=== PATIENT | female | born 1995 | race Caucasian/White ===

== ENCOUNTER → 2020-05-31 08:41 | Outpatient (BNVA) | payer OTHER, SELFPAY | PROVIDERS: PCP Internal Medicine; Referring Provider Internal Medicine; Visit Provider Internal Medicine Gastroenterology | DX: Z76.89 Persons encountering health services in other specified circumstances (principal) ==

== ENCOUNTER 2020-06-14 07:58 | Outpatient (REF) | payer OTHER, SELFPAY ==
--- NOTE | 2020-06-14 08:13 | US_ITS ---
EXAMINATION: US COMPLETE ABDOMEN WITH LIVER ELASTOGRAPHY CLINICAL INFORMATION: Fatty liver COMPARISON: Previous CT scans of the abdomen and pelvis most recent January 2020 TECHNIQUE: Real-time imaging of the abdominal viscera. Noninvasive ultrasound liver fibrosis assessment is performed using Mack ElastPQ point quantification shear wave elastography (pSWE) with a 5 MHz transducer. Multiple elastography samples are obtained. FINDINGS: PANCREAS: Normal. ABDOMINAL AORTA: The proximal, middle, and distal aortic segments are normal in caliber. INFERIOR VENA CAVA: Visualized portions are normal. LIVER: Liver echotexture is increased probably representing fatty infiltration. The liver is normal in contour. There is a 1 x 0.8 x 0.8 cm hypoechoic lesion in the right lobe of the liver. The liver is normal in size. The right lobe measures 16 cm in length. The left lobe measures 11 cm in length. The main portal vein is patent with appropriate hepatopedal flow. Shear wave elastography provides a median stiffness of 1.3 m/s (reference: normal median stiffness is 0.81 - 1.22 m/s). The IQR/median stiffness to assess sampling precision is 0.2 (reference: optimal IQR/median stiffness is under 0.3). GALLBLADDER: Normal. The gallbladder is physiologically distended without evidence of stones, sludge, polyps, wall thickening or pericholecystic fluid. COMMON BILE DUCT: Normal in caliber measuring 0.4 cm in diameter. RIGHT KIDNEY: Normal. No hydronephrosis. No renal calculi or focal parenchymal lesions. The kidney measures 9.5 cm in maximum dimension. LEFT KIDNEY: Normal. No hydronephrosis. No renal calculi or focal parenchymal lesions. The kidney measures 10.8 cm in maximum dimension. SPLEEN: Normal. The spleen measures 11.4 cm in maximum dimension. FREE FLUID: None. US/US abdomen comp w elastography IMPRESSION: 1. Impression: Echogenic liver probably representing fatty infiltration. 1 cm hypoechoic lesion in the right lobe of the liver. This is not appreciated on previous CT scans. This could be better evaluated with liver MRI. 2. Elastography: Metavir score F0 to F1 suggestive of normal to mild increased risk of developing liver fibrosis.
== END 2020-06-14 07:59 | disposition home or self-care (01) ==
LOC: HO.US 07:58
PROVIDERS: PCP Internal Medicine; Visit Provider Internal Medicine Gastroenterology
DX: R10.10 Upper abdominal pain, unspecified (principal); K76.0 Fatty (change of) liver, not elsewhere classified
CPT/HCPCS: 76705; 76981

== ENCOUNTER 2020-07-27 14:08 | Outpatient (REF) | payer OTHER, SELFPAY ==
[2020-07-27 14:53] LABS: MANUAL DIFF FLAG NO
[2020-07-27 14:57] LABS: Basophils Percent Auto 0.4 % (0-2); Eosinophils Absolute Auto 0.1 X10*3/uL (0.0-0.4); Hematocrit 43.7 % (37-47); Hemoglobin 14.5 g/dl (12.0-16.0); Imm Gran Abs Auto 0.02 X10*3/uL (0.00-0.03); Imm Gran Pct Auto 0.3 % (0.0-0.4); Lymphocytes Absolute Auto 3.7 X10*3/uL (1.2-4.9); Lymphocytes Percent Auto 46.9 % (20-40); Mean Corpuscular HGB Conc 33.2 g/dl (31.0-35.0); Mean Corpuscular Hemoglobin 29.8 pg (27.0-33.0); Mean Corpuscular Volume 89.9 fL (80-98); Mean Platelet Volume 10.6 fL (9.4-12.3); Monocytes Absolute Auto 0.5 X10*3/uL (0.1-1.2); Monocytes Percent Auto 6.4 % (2-11); Neutrophils Absolute Auto 3.6 X10*3/uL (2.0-8.3); Platelet Count 273 X10*3/uL (160-400); Red Blood Count 4.86 X10*6/uL (4.20-5.50)
[2020-07-27 15:23] LABS: Alanine Aminotransferase 22 U/L (0-31); Albumin Level 4.2 g/dL (3.5-5.0); Alkaline Phosphatase 101 U/L (39-117); Anion Gap 15 (12-20); Aspartate Amino Transferase 20 U/L (5-31); Bilirubin Total 0.3 mg/dL (0.0-1.0); Blood Urea Nitrogen 9 mg/dL (9-16); C Reactive Protein 0.29 mg/dL (< or = 0.50); Carbon Dioxide 24 mmol/L (22-29); Chloride 104 mmol/L (96-108); Cholesterol 182 mg/dL; Estimated Glomerular Filt Rate > 60; Gamma Glutamyl Transpeptidase 15 U/L (7-33); Glucose Fasting 93 mg/dL (60-99); HDL Cholesterol 64 mg/dL; LDL Cholesterol Calculated 85 mg/dl; Potassium 3.6 mmol/l (3.3-5.1); Sodium 139 mmol/L (135-145); Total Protein 7.2 g/dL (6.5-8.0); Triglycerides 168 mg/dL
[2020-07-27 15:50] LABS: TSH reflex Free T4 1.83 mIU/mL (0.32-4.0); Vitamin D 25-OH Total 21.8 ng/mL (>30)
[2020-07-27 16:29] LABS: Ferritin 26 ng/mL (10-122)
[2020-07-28 04:23] LABS: HBS Num1 0.72 mIU/mL (0-7.99); HBc Num1 0.07 S/CO (0.00-0.79); Hepatitis B Core Antibody Nonreactive (Nonreactive); ~HepC Num1 0.08 S/CO (0.00-0.79); ~Hepatitis B Surface Antibody NONREACTIVE (Nonreactive); ~Hepatitis C Antibody Nonreactive (Nonreactive)
[2020-07-28 04:29] LABS: HBsAGNum1 0.21 S/CO (0.00-0.99); Hepatitis B Surface Antigen Negative (Negative)
[2020-07-28 13:32] LABS: Alpha 1 Anti-trypsin 171 mg/dL (83-199); Ceruloplasmin 47 mg/dL (18-53)
[2020-08-02 13:12] LABS: Transglutaminase IgA 1 U/mL
== END 2020-07-27 14:09 | disposition home or self-care (01) ==
LOC: HO.LAB 14:08
PROVIDERS: Visit Provider Internal Medicine Gastroenterology
DX: K76.0 Fatty (change of) liver, not elsewhere classified (principal)
CPT/HCPCS: 36415; 80053; 80061; 82103; 82306; 82390; 82728; 82977; 83516; 84443; 85025; 86140; 86704; 86706; 86803; 87340

== ENCOUNTER → 2020-07-28 16:03 | Outpatient (BNVA) | payer OTHER, SELFPAY | PROVIDERS: Visit Provider Internal Medicine Gastroenterology | DX: Z76.89 Persons encountering health services in other specified circumstances (principal) ==

== ENCOUNTER → 2021-01-17 11:27 | Outpatient (BNVA) | payer OTHER, SELFPAY | PROVIDERS: PCP Internal Medicine; Referring Provider Internal Medicine; Visit Provider Nurse Practitioner Family ==

== ENCOUNTER → 2021-04-05 08:17 | Outpatient (BNVA) | payer OTHER, SELFPAY | PROVIDERS: Referring Provider Internal Medicine; Visit Provider Nurse Practitioner Family ==

== ENCOUNTER → 2021-04-28 16:02 | Outpatient (BNVA) | payer OTHER, SELFPAY | PROVIDERS: PCP Internal Medicine; Referring Provider Internal Medicine; Visit Provider Surgery | DX: K62.5 Hemorrhage of anus and rectum (principal); K64.4 Residual hemorrhoidal skin tags; K76.0 Fatty (change of) liver, not elsewhere classified; F41.8 Other specified anxiety disorders; Z91.040 Latex allergy status; Z91.010 Allergy to peanuts; Z91.018 Allergy to other foods; Z79.899 Other long term (current) drug therapy | CPT/HCPCS: 46600 ==

== ENCOUNTER → 2021-05-06 08:52 | Outpatient (BNVA) | payer OTHER, SELFPAY | PROVIDERS: PCP Internal Medicine; Visit Provider Nurse Practitioner Family ==

== ENCOUNTER 2021-06-10 07:44 | Outpatient (REF) | payer OTHER, SELFPAY ==
--- NOTE | ~2021-06-10 | US_ITS ---
EXAMINATION: US ABDOMEN COMPLETE CLINICAL INFORMATION: Fatty change of liver, not elsewhere classified. COMPARISON: Ultrasound abdomen complete 06/14/2020. CT abdomen and pelvis 01/24/2020. Renal ultrasound 10/23/2018. TECHNIQUE: Real-time imaging of the abdominal viscera. FINDINGS: PANCREAS: Unremarkable. ABDOMINAL AORTA: The proximal, mid, and distal segments are normal in caliber. INFERIOR VENA CAVA: Visualized portions are normal. LIVER: The liver is normal in size. The liver contour is normal. The liver shows diffusely increased echogenicity consistent with hepatic steatosis. Focal fatty sparing is evident in the gallbladder fossa. No focal hepatic lesion. The small focal hypodense lesion seen previously in the right lobe is not visualized. There is no intrahepatic biliary duct dilatation seen. GALLBLADDER: Normal. The gallbladder is physiologically distended without evidence of stones, sludge, polyps, wall thickening or pericholecystic fluid. COMMON BILE DUCT: Normal in caliber measuring 0.4 cm in diameter. RIGHT KIDNEY: Normal. No hydronephrosis. No renal calculi or focal parenchymal lesions. The kidney measures 9.9 cm in maximum dimension. LEFT KIDNEY: Normal. No hydronephrosis. No renal calculi or focal parenchymal lesions. The kidney measures 9.9 cm in maximum dimension. SPLEEN: Normal. The spleen measures 11.3 cm in maximum dimension. FREE FLUID: None. US/US abdomen complete IMPRESSION: 1. Stable appearance of the liver which is mildly heterogeneous with increased echogenicity, nonspecific but consistent with hepatic steatosis. Focal fatty sparing is evident in the gallbladder fossa. 2. Small hypoechoic lesion seen previously in the right lobe is not visualized. 3. Otherwise unremarkable.
== END 2021-06-10 07:45 | disposition home or self-care (01) ==
LOC: HO.US 07:44
PROVIDERS: PCP Internal Medicine; Visit Provider Nurse Practitioner Family
DX: K76.0 Fatty (change of) liver, not elsewhere classified (principal)
CPT/HCPCS: 76700

== ENCOUNTER → 2021-10-31 08:31 | Outpatient (BNVA) | payer OTHER, SELFPAY | PROVIDERS: PCP Internal Medicine; Referring Provider Internal Medicine; Visit Provider Nurse Practitioner Family | DX: Z13.89 Encounter for screening for other disorder (principal) ==

== ENCOUNTER 2021-11-03 14:18 | Outpatient (REF) | payer OTHER, SELFPAY ==
[2021-11-03 14:59] LABS: Hematocrit 39.2 % (37.0-47.0); Hemoglobin 13.4 g/dl (12.0-16.0); Mean Corpuscular HGB Conc 34.2 g/dl (31.0-35.0); Mean Corpuscular Hemoglobin 30.3 pg (27.0-33.0); Mean Corpuscular Volume 88.7 fL (80.0-98.0); Mean Platelet Volume 10.8 fL (9.4-12.3); Platelet Count 255 X10*3/uL (160-400); Red Blood Count 4.42 X10*6/uL (4.20-5.50); Red Cell Distribution Width 11.9 % (11.0-16.0); White Blood Count 8.1 X10*3/uL (4.8-10.8)
[2021-11-03 15:18] LABS: Alanine Aminotransferase 20 U/L (0-31); Albumin Level 3.9 g/dL (3.5-5.0); Alkaline Phosphatase 98 U/L (39-117); Aspartate Amino Transferase 22 U/L (5-31); Bilirubin Direct < 0.2 mg/dL (0.0-0.5); Bilirubin Total 0.4 mg/dL (0.0-1.0); C Reactive Protein 0.73 mg/dL (< or = 0.50); Lipase 25 U/L (8-78); Total Protein 6.9 g/dL (6.5-8.0)
[2021-11-11 12:26] LABS: Transglutaminase Ab IgG <1.0 U/mL; Transglutaminase IgA <1.0 U/mL
== END 2021-11-03 14:19 | disposition home or self-care (01) ==
LOC: HO.LAB 14:18
PROVIDERS: PCP Internal Medicine; Visit Provider Nurse Practitioner Family
DX: R10.11 Right upper quadrant pain (principal); Z83.79 Family history of other diseases of the digestive system
CPT/HCPCS: 36415; 80076; 83690; 85027; 86140; 86364

== ENCOUNTER 2023-10-24 15:25 | Outpatient (AMB) | payer OTHER, SELFPAY ==
--- NOTE | 2023-10-24 15:40 | MHC.OFFVIS ---
Intake Vital Signs 10/24/23 16:05 Height 5 ft 3 in Intake Visit Reasons: rectal bleeding and hemorrhoids Intake Note: This patient presents for an assessment for rectal bleeding and hemorrhoids. Pt c/o; ? external skin tag, reports rectal bleeding only if passes hard stool, ? skin tag vs hemorrhoid, reports never had a colonoscopy, reports weight loss. 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 She also feels a fleshy mass outside her anus. She wanted this checked. She is known to me for bleeding hemorrhoids in the past. She had seen me in 2020 for this. She occasionally has some bleeding from her hemorrhoids. I had seen internal external hemorrhoidal columns before She states that she does have a history of chronic constipation on and off. She still sees some blood on wiping once in a while whenever she has hard stools. She denies any significant pain. [facility] Medical History Internal and external bleeding hemorrhoids Bleeding hemorrhoids Anxiety and depression Hepatic steatosis IBS (irritable colon syndrome) Surgical History Hx of hand surgery No significant past surgical history Family History Father History of cancer Mother Family history of high blood pressure History of COPD Lung cancer Social History Alcohol intake: current Alcohol intake frequency: a few times a week Alcohol type: hard liquor Substance Use Type: Marijuana Review of Systems Const Denies chills and Denies fever(s) Card Denies chest pain, Denies dyspnea and Denies dyspnea on exertion Resp Denies cough, Denies dyspnea and Denies dyspnea on exertion GI Reports hematochezia, Denies change in bowel habits and Reports constipation Denies hematuria Musc Denies back pain and Denies limited range of motion Neuro Denies focal weakness and Denies convulsions Psych Denies depression and Denies mood swings Physical Exam Const General: comfortable and no acute distress Orientation/consciousness: patient oriented x3 Neck Neck: Yes no lymphadenopathy Resp Auscultation: clear to auscultation bilaterally Cardio Rhythm: regular rhythm GI Palpation (GI): Soft to palpation, nontender and no guarding Neuro General: patient oriented x3 Office Procedures Anoscopy She was in elsa-knife position. The anoscope was gently inserted. A full examination of the anal canal was done. He did have small hemorrhoidal columns, internal, and some external on both the left and right side There were no lesions seen with a sharp fissure or ulceration. There was no induration on digital exam. There was no bleeding She did have this small sclerosed external hemorrhoid on the right anterior area and this is likely what she is feeling as a ?fleshy mass?. [id number] Assessment & Plan Assessment & Plan (1) Internal and external bleeding hemorrhoids: Code(s): K64.4 - Residual hemorrhoidal skin tags; K64.8 - Other hemorrhoids Plan: She does describe some occasional bleeding on wiping whenever she is constipated. She was more concerned about the ?fleshy mass? just outside her anus. This is a sclerosed hemorrhoid. I told her that this appears benign. This is small in size. I told her that if this is not bothering her were not causing any issues, she can continue to monitor this. She is welcome to come back to the office if she has concerns down the line. She is comfortable with the plan. She does have a history of constipation. I told her that would be good for her to try some Metamucil supplements. Control of her constipation can help with her hemorrhoid issues as well. Coding Level of Care Code Est Pt Level 3 (18874) Diagnoses Internal and external bleeding hemorrhoids K64.4; K64.8 CPT Codes Details - CPT: 50379-[id number] ([id number])
== END 2023-10-24 16:28 | disposition home or self-care (01) ==
PROVIDERS: PCP Internal Medicine; Visit Provider Surgery
DX: K64.8 Other hemorrhoids (principal)
CPT/HCPCS: 46600; 99213

== ENCOUNTER → 2023-10-24 15:25 | Outpatient (BNVA) | payer OTHER, SELFPAY | PROVIDERS: PCP Internal Medicine; Visit Provider Surgery | DX: K64.4 Residual hemorrhoidal skin tags (principal); K64.8 Other hemorrhoids | CPT/HCPCS: 46600 ==

== ENCOUNTER 2024-08-20 09:01 | Outpatient (AMB) | payer OTHER, SELFPAY ==
[2024-08-20 09:14] VITALS: BP 98/56; PULSE 66; O2SAT 98; BMI 24.8
--- NOTE | 2024-08-20 09:14 | A.OFFVIS_ITS ---
Vital Signs 08/20/24 09:14 Height 5 ft 3 in Weight 140 lb 3.424 oz BMI 24.8 BP 98/56 L Blood Pressure Location Rt brachial Position Sitting Pulse 66 Pulse Source Pulse Oximeter Pulse Oximetry (%) 98 Oxygen Delivery Method Room Air Intake Visit Reasons: Acute Constipation, in ED on 08/15/24 Intake Note: ESTABLISHED PATIENT for FUV re-establish kelsi was 10/31/2021. Mgmt of hepatic stenosis, constipation w/ hemorrhoids. Chief Complaint; Constipation, with associated hx of hemorrhoids which were evaluated by [facility]. Pt also reports recent hx of fecal inconsistencies and bowel habit changes. Pt denies any additional GI concerns. Organizational Development Director Required: No Accompanied by: Self / Same As Patient Allergies peanut Allergy (Severe, Verified 08/20/24 09:15) Anaphylaxis latex [LATEX] Allergy (Intermediate, Verified 10/24/23 16:04) ITCHING RAW FRUITS AND VEGETABLES Allergy (Unknown, Uncoded 10/24/23 16:04) itchy mouth, throat feels tight, unable to swallow HPI HPI Acute Constipation, in ED on 08/15/24: Details: LAST VISIT: Hepatic steatosis History of hepatic steatosis. Discussed with patient avoiding alcohol. Patient will need to go for liver profile testing. Ordered last visit, however person forgot to get it done. Because of her postprandial abdominal discomfort I will order lipase as well. Patient had elevated lipase back in January of 2020: 104. IBS (irritable colon syndrome) Postprandial abdominal bloating, pain. Most likely related to the food that she eats. Discussed with patient avoiding dietary triggers FODMAP diet discussed with her again. Patient has previously seen Dr. Townsend and she was given dicyclomine, however that was not working very well for her. Given patient's inability to empty her bowels completely dicyclomine probably has not been a great choice. Discussed with patient that the best for her would be to avoid the food that can cause her no symptoms. Also we might need to try to start her on Creon to see if that will help. Previously her HIDA scan was done and it was normal. On her last ultrasound the gallbladder is distended with no evidence of slough,wall thickness or stones. Upper abdominal pain Epigastric abdominal pain. We will test her for H pylori. Patient will be sent to go for pancreatic elastase to rule out pancreatic insufficiency we can have her do stool for H pylori as well. We will treat her empirically if positive. Patient is taking famotidine which she reports that is helpful. I am not going to start her on any PPIs at this time. We will try to see if the Creon will help with her symptoms. I will see her in 3 months to re-evaluate. Patient will call me sooner if she will have any worsening symptoms or any other GI concerning symptoms. ? Thank you for allowing me to participate in her care Plan Orders Orders Pancreatic Elastase-1 10/31/21 R10.9 Lipase 11/03/21 R10.9 H pylori Ag Stool 10/31/21 K21.9 Medications New hyizgo-ykkizmpz-htanpmq 12,000-38,000 -60,000 unit (Creon) administer with meals and/or snacks 1 cap PO QID 120 caps 2RF R10.9= TODAY VISIT Patient is here today for requested visit. Patient reports that she has been doing well since last visit until about few months ago. Patient is eating well change her diet drinking lots of water. Patient started feeling very constipated. Severe abdominal pain in the pelvic area radiating to right lower quadrant, patient was seen in the ED at [facility] All her blood work was negative, no leukocytosis. CT scan showed moderate stool throughout the colon. Patient reports that she started taking women's vitamins with iron and back could be the reason, however patient states that she stopped taking it and continues to be constipated. Patient reports that she never had trouble having bowel movement in the past. Patient reports that she was given GoLYTELY and states that that help to clean her else. Occasional blood in his stool. Denies melena, unintentional weight loss or ribbon like stools. [facility] Medical History Internal and external bleeding hemorrhoids Bleeding hemorrhoids Anxiety and depression Hepatic steatosis IBS (irritable colon syndrome) Surgical History Hx of hand surgery No significant past surgical history Family History Father History of cancer Mother Family history of high blood pressure History of COPD Lung cancer Social History Alcohol intake: current Alcohol intake frequency: a few times a week Alcohol type: hard liquor Substance Use Type: Marijuana Review of Systems Const Denies weight gain and Denies weight loss ENT Reports no additional complaints, Denies dysphagia and Denies odynophagia Card Reports no additional complaints Resp Reports no additional complaints GI Reports abdominal pain, Denies belching, Denies melena, Reports bloating, Denies change in bowel habits, Reports constipation, Denies dysphagia, Denies excessive flatus, Denies dyspepsia, Denies heartburn, Denies diarrhea, Denies loose stools, Denies nausea, Denies odynophagia and Denies vomiting Reports no additional complaints Musc Reports no additional complaints Neuro Reports no additional complaints Psych Reports no additional complaints Endo Reports no additional complaints Physical Exam Vital Signs: Last Vital Signs Pulse 66 08/20/24 09:14 BP 98/56 L 08/20/24 09:14 Pulse Ox 98 08/20/24 09:14 Oxygen Delivery Method Room Air 08/20/24 09:14 BMI result Body Mass Index 24.8 Const General: healthy appearing, no acute distress and well developed Nutritional Appearance: well nourished Orientation/consciousness: patient oriented x3 Resp Effort & Inspection: normal respiratory effort, able to speak in complete sentences, no tracheal deviation and symmetric chest movement Auscultation: clear to auscultation bilaterally Cardio Rate: regular rate GI Inspection: Yes normal to inspection and No distended Palpation (GI): Soft to palpation, not firm, nontender and No hepatosplenomegaly present Auscultation: normal bowel sounds General: Yes no CVA tenderness Back/Spine/Pelvis Back: no CVA tenderness Skin General skin exam: elasticity normal, turgor normal and dry skin Neuro General: patient oriented x3 Psych Appearance: grossly normal Mental Status: mental status grossly normal Assessment & Plan Assessment & Plan (1) Internal and external bleeding hemorrhoids: Code(s): K64.4 - Residual hemorrhoidal skin tags; K64.8 - Other hemorrhoids Category: Medical (2) IBS (irritable colon syndrome): Code(s): K58.9 - Irritable bowel syndrome, unspecified Category: Medical Qualifiers: Irritable bowel syndrome type: unspecified Qualified Code(s): K58.9 - Irritable bowel syndrome without diarrhea (3) Constipation: Code(s): K59.00 - Constipation, unspecified Qualifiers: Constipation type: slow transit constipation Qualified Code(s): K59.01 - Slow transit constipation Plan Patient will try Benefiber with pre and probiotic, stool softeners. Patient will stop taking iron supplement and will try to eat food high in iron. Patient is not anemic. Will be set up to go for colonoscopy. What to expect before during and after procedure discussed with patient. Stressed the importance of good bowel prep and clear liquid diet day before procedure. Patient would like to try GoLYTELY as this worked for her in the past. I will see patient after the procedure. Patient will call our office if she will have any GI concerning symptoms. She is agreeable to this plan and verbalizes understanding of instructions she was given the opportunity to ask questions and all questions answered. Thank you for allowing me to participate in care Medications: New peg 3350-electrolytes 227.1-21.5-6.36 gram 240 mL PO Q10M 1 ea 0RF bisacodyl (Dulcolax (bisacodyl)) take 4 tabs at noon the day before your colonoscopy 20 mg (4 x 5 mg) PO ONCE 1 day 4 tabs 0RF Z12.11 - Encounter for screening for malignant neoplasm of colon Coding Level of Care Code Est Pt Level 3 (62828) Diagnoses Internal and external bleeding hemorrhoids K64.4; K64.8 Irritable bowel syndrome, unspecified type K58.9 Irritable bowel syndrome type: unspecified Slow transit constipation K59.01 Constipation type: slow transit constipation Time Spent (min) 30 Comment 20 minutes spent with patient and additional 10 minutes spent reviewing her records
--- OUTSIDE RECORDS SUMMARY | 2024-08-20 10:16 | XMS_ITS | Clinical Summary ---
Author Organization [facility] Address [address] [place] [phone] Phone Care Team Providers Care Coat Examiner Name Role Phone Moustapha Ocasio MD Primary Care Provider [phone] Allergies No known active allergies Medications Medication Sig Dispensed Refills Start Date End Date Status albuterol HFA (PROAIR HFA ; PROVENTIL HFA ; VENTOLIN HFA) 90 mcg/actuation inhaler Inhale 2 puffs by mouth every 4 (four) hours if needed for shortness of breath. 02/01/2019 Active clonazePAM (KlonoPIN) 0.5 mg tablet Take 1 tablet (0.5 mg total) by mouth 2 (two) times a day if needed. for anxiety Max Daily Amount: 1 mg Active norgestimate-ethiny l estradioL (ORTHO-CYCLEN) 0.25-35 mg-mcg per tablet Take 1 tablet by mouth 1 (one) time each day. Active fluticasone propionate (FLONASE) 50 mcg/actuation nasal spray Administer 1 spray into each nostril 1 (one) time each day. Active buPROPion XL (WELLBUTRIN XL) 150 mg 24 hr tablet Take 1 tablet (150 mg total) by mouth 1 (one) time each day. 06/30/2024 Active polyethylene glycol (GoLYTELY) 236-22.74-6.74 -5.86 gram solution Take 4,000 mL by mouth 1 (one) time for 1 dose. 4000 mL 08/15/2024 08/15/2024 Active Problems No known active problems Encounters Date Type Department Care Team Description 08/15/2024 9:13 AM EST - 08/15/2024 12:[address] [facility] [address] [place] [address] Rick Rutherford MD Constipation, unspecified constipation type (Primary Dx); Generalized abdominal pain Discharge Disposition: Home or Self Care from Last 3 Months Surgical History Surgery Date Site/Laterality Comments HAND SURGERY PROCEDURE:HAND SURGERY Medical History Medical History Date Comments Frequent headaches DX:Frequent h eadaches Ovarian cyst Anxiety Family History Medical History Relation Name Comments Lung cancer Father Lung cancer Father's Brother Acute myelogenous leukemia Maternal Grandfather Lung cancer Maternal Grandmother Lung cancer Mother Throat cancer Mother's Sister Lung cancer Paternal Grandfather Lung cancer Paternal Grandmother Relation Name Status Comments Father Father's Brother Maternal Grandfather Maternal Grandmother Mother Mother's Sister Alive Paternal Grandfather Paternal Grandmother Social History Tobacco Use Types Packs/Day Years Used Date Smoking Tobacco: Never Smokeless Tobacco: Never Alcohol Use Standard Drinks/Week Comments Yes 0 (1 standard drink = 0.6 oz pur e alcohol) Sex and Gender Information Value Date Recorded Sex Assigned at Not on file Gender Identity Not on file Sexual Orientation Not on file Job Start Date Occupation Industry Not on file Not on file Not on file Obstetrics History Last Filed Vital Signs Vital Sign Reading Time Taken Comments Blood Pressure 119/77 08/15/2024 9:23 AM EST Pulse 93 08/15/2024 9:23 AM EST Temperature 36.8 ??C (98.3 ??F) 08/15/2024 9:26 AM ES T Respiratory Rate 16 08/15/2024 9:23 AM EST Oxygen Saturation 98% 08/15/2024 9:23 AM EST Inhaled Oxygen Concentration - - Weight 61.2 kg (135 lb) 08/15/2024 9:26 AM EST Height 160 cm (5' 3 ) 08/15/2024 9:26 AM EST Body Mass Index 23.91 08/15/2024 9:26 AM EST Plan of Treatment Health Maintenance Due Date Last Done Comments DTaP,Tdap,and Td Vaccines (1 - Tdap) 2012 Hepatitis B Vaccines (1 of 3 - 19+ 3-dose series) 2012 Cervical Cancer Screening: P ap Smear 2014 Depression Screening 06/25/2022 HIV Screening 06/25/2022 Hepatitis C Screening 06/25/2022 Social Influencers of Health Screening 06/25/2022 COVID-19 Vaccine (2023-2 5 season) 2024 Influenza Vaccine (#1) 2024 HIB Vaccines Aged Out No longer eligi ble based on patient's age to complete this topic HPV Vaccines Aged Out No longer eligi ble based on patient's age to complete this topic Hepatitis A Vaccines Aged Out No long er eligible based on patient's age to complete this topic IPV Vaccines Aged Out No longer eligi ble based on patient's age to complete this topic MMR Vaccines Aged Out No longer eligi ble based on patient's age to complete this topic Meningococcal ACWY Vaccine Aged Out N o longer eligible based on patient's age to complete this topic Pneumococcal Vaccine: Pediat rics (0 to 5 Years) and At-Risk Patients (6 to 64 Years) Aged Out No longer eligible b ased on patient's age to complete this topic RSV Immunization Patients Un wade 20 months Aged Out No longer eligible b ased on patient's age to complete this topic Varicella Vaccines Aged Out No longer eligible based on patient's age to complete this topic Procedures Procedure Name Priority Date/Time Associated Diagnosis Comments CT ABDOMEN PELVIS W CONTRAST STAT 08/15/2024 11:39 AM EST CBC WITH AUTO DIFFERENTIAL STAT 08/15/2024 10:22 AM EST LIPASE STAT 08/15/2024 10:22 AM EST COMPREHENSIVE METABOLIC PANEL STAT 08/15/2024 10:22 AM EST CBC AND DIFFERENTIAL STAT 08/15/2024 10:22 AM EST POC , URINE DIAGNOSTIC STAT 08/15/2024 9:51 AM EST URINALYSIS WITH REFLEX MICROSCOPIC STAT 08/15/2024 9:45 AM EST URINALYSIS WITH REFLEX MICROSCOPIC STAT 08/15/2024 9:45 AM EST from Last 3 Months Results * CT Abdomen Pelvis w Contrast (08/15/2024 11:39 AM EST) Anatomical Region Laterality Modality Body Computed Tomogra phy 08/15/2024 12:0 3 PM EST Impressions 08/15/2024 12:06 PM EST No acute findings in the abdomen/pelvis. ??Normal appendix. -------- FINAL REPORT -------- Dictated By: DANIEL ALVARADO Dictated Date: 08/15/2024 12:03 ET Assigned Physician: DANIEL ALVARADO Reviewed and Electronically Signed By: DANIEL ALVARADO Signed Date: 08/15/2024 12:06 ET Workstation ID: [id number] Transcribed By: Self Edit Transcribed Date: 08/15/2024 12:03 ET Narrative 08/15/2024 12:06 PM EST PROCEDURE: CT ABDOMEN/PELVIS INDICATION: Pain TECHNIQUE: CT of the abdomen and pelvis following the intravenous administration of 90cc Isovue 370. Multiplanar reformats. The examination was performed utilizing dose reduction techniques. Total DLP 564 COMPARISON: ??No priors available. FINDINGS: ?? LOWER THORAX: Lung bases are clear. HEPATOBILIARY: Hepatic steatosis. ??Focal fat along the falciform ligament. ??No suspicious liver lesions. ??Gallbladder and biliary tree are normal SPLEEN: No splenomegaly. PANCREAS: No focal mass or ductal dilatation. ADRENALS: No nodules. KIDNEYS/URETERS: No hydronephrosis, stones, or solid mass. PELVIC ORGANS/BLADDER: Uterus, adnexal structures, and bladder are normal. PERITONEUM / RETROPERITONEUM: No ascites or free air. No retroperitoneal lymphadenopathy. VESSELS: Portal vein is patent. ??Abdominal aorta is normal in size. GI TRACT: No bowel obstruction or wall thickening. ??Normal appendix. ??Moderate stool throughout the colon. BONES AND SOFT TISSUES: Bones and soft tissues are normal. Procedure Note Daniel Alvarado MD - 08/15/2024 PROCEDURE: CT ABDOMEN/PELVIS INDICATION: Pain TECHNIQUE: CT of the abdomen and pelvis following the intravenousadministration of 90cc Isovue 370. Multiplanar reformats. The examinationwas performed utilizing dose reduction techniques. Total DLP 564 COMPARISON: No priors available. FINDINGS: LOWER THORAX: Lung bases are clear. HEPATOBILIARY: Hepatic steatosis. Focal fat along the falciform ligament.No suspicious liver lesions. Gallbladder and biliary tree are normal SPLEEN: No splenomegaly. PANCREAS: No focal mass or ductal dilatation. ADRENALS: No nodules. KIDNEYS/URETERS: No hydronephrosis, stones, or solid mass. PELVIC ORGANS/BLADDER: Uterus, adnexal structures, and bladder arenormal. PERITONEUM / RETROPERITONEUM: No ascites or free air. No retroperitoneallymphadenopathy. VESSELS: Portal vein is patent. Abdominal aorta is normal in size. GI TRACT: No bowel obstruction or wall thickening. Normal appendix.Moderate stool throughout the colon. BONES AND SOFT TISSUES: Bones and soft tissues are normal. IMPRESSION: No acute findings in the abdomen/pelvis. Normal appendix. -------- FINAL REPORT -------- Dictated By: DANIEL ALVARADO Dictated Date: 08/15/2024 12:03 ET Assigned Physician: DANIEL ALVARADO Reviewed and Electronically Signed By: DANIEL ALVARADO Signed Date: 08/15/2024 12:06 ET Workstation ID: [id number] Transcribed By: Self Edit Transcribed Date: 08/15/2024 12:03 ET Marcelo ASHLEY IM CT PROCEDURES * (ABNORMAL) CBC auto differential (08/15/2024 10:22 AM EST) WBC 6.7 4.8 - 10.8 K/mcL LAB HEMETOLOGY METHOD 08/15/2024 10:46 AM [facility] RBC 4.50 3.80 - 4.80 M/mcL LAB HEMETOLOGY METHOD 08/15/2024 10:46 AM [facility] Hemoglobin 13.7 11.5 - 16.0 g/dL LAB HEMETOLOGY METHOD 08/15/2024 10:46 AM [facility] Hematocrit 41.1 35.0 - 47.0 % LAB HEMETOLOGY METHOD 08/15/2024 10:46 AM [facility] MCV 92.4 79.0 - 98.0 FL LAB HEMETOLOGY METHOD 08/15/2024 10:46 AM [facility] MCH 30.8 27.0 - 32.0 pcg LAB HEMETOLOGY METHOD 08/15/2024 10:46 AM [facility] MCHC 33.3 32.0 - 37.0 g/dL LAB HEMETOLOGY METHOD 08/15/2024 10:46 AM [facility] RDW 12.0 11.0 - 15.0 % LAB HEMETOLOGY METHOD 08/15/2024 10:46 AM [facility] Platelets 283 130 - 400 K/mcL LAB HEMETOLOGY METHOD 08/15/2024 10:46 AM [facility] MPV 11.1(H) 7.0 - 11.0 FL LAB HEMETOLOGY METHOD 08/15/2024 10:46 AM [facility] NRBC 0.0 <1.0 % LAB HEMETOLOGY METHOD 08/15/2024 10:46 AM [facility] NRBC Absolute 0.00 <0.10 K/mcL LAB HEMETOLOGY METHOD 08/15/2024 10:46 AM [facility] Neutrophils Relative 56.3 % LAB HEMETOLOGY METHOD 08/15/2024 10:46 AM [facility] Lymphocytes Relative 34.8 % LAB HEMETOLOGY METHOD 08/15/2024 10:46 AM [facility] Monocytes Relative 6.4 % LAB HEMETOLOGY METHOD 08/15/2024 10:46 AM [facility] Eosinophils Relative 1.5 % LAB HEMETOLOGY METHOD 08/15/2024 10:46 AM [facility] Basophils Relative 0.7 % LAB HEMETOLOGY METHOD 08/15/2024 10:46 AM [facility] Immature Granulocytes Relative 0.3 % LAB HEMETOLOGY METHOD 08/15/2024 10:46 AM EST [facility] Neutrophils Absolute 3.77 1.50 - 7.00 K/[facility] LAB HEMETOLOGY METHOD 08/15/2024 10:46 AM EST [facility] Lymphocytes Absolute 2.33 1.00 - 5.00 K/mcL LAB HEMETOLOGY METHOD 08/15/2024 10:46 AM EST [facility] Monocytes Absolute 0.43 0.20 - 1.00 K/[facility] LAB HEMETOLOGY METHOD 08/15/2024 10:46 AM EST [facility] Eosinophils Absolute 0.10 0.00 - 0.50 K/[facility] LAB HEMETOLOGY METHOD 08/15/2024 10:46 AM EST [facility] Basophils Absolute 0.05 0.00 - 0.20 K/mcL LAB HEMETOLOGY METHOD 08/15/2024 10:46 AM EST [facility] Immature Granulocytes Absolute 0.02 0.00 - 0.03 K/[facility] LAB HEMETOLOGY METHOD 08/15/2024 10:46 AM EST [facility] Blood Venous blood specimen / Unknown Venipuncture / Unknown 08/15/2024 10:22 AM EST 08/15/2024 10:36 AM EST Marcelo [facility] LAB BLOOD ORDERAB LES [facility]) [facility] [address] [place] [address], * Lipase (08/15/2024 10:22 AM EST) Lipase 48 13 - 75 unit/L LAB CHEMISTRY METHOD 08/15/2024 11:08 AM EST [facility] Blood Venous blood specimen / Unknown Venipuncture / Unknown 08/15/2024 10:22 AM EST 08/15/2024 10:36 AM EST Marcelo ASHLEY LAB BLOOD ORDERAB LES [facility] [address] [place] [address], * (ABNORMAL) Comprehensive metabolic panel (08/15/2024 10:22 AM EST) Sodium 137 133 - 145 mmol/L LAB CHEMISTRY METHOD 08/15/2024 11:09 AM [facility] Potassium 4.1 3.5 - 5.5 mmol/L LAB CHEMISTRY METHOD 08/15/2024 11:09 AM [facility] Chloride 109 96 - 110 mmol/L LAB CHEMISTRY METHOD 08/15/2024 11:09 AM [facility] CO2 26 21 - 32 mmol/L LAB CHEMISTRY METHOD 08/15/2024 11:09 AM [facility] Anion Gap 2(L) 3 - 11 LAB CHEMISTRY METHOD 08/15/2024 11:09 AM [facility] Glucose 83 70 - 100 mg/dL LAB CHEMISTRY METHOD 08/15/2024 11:09 AM [facility] BUN 12 5 - 25 mg/dL LAB CHEMISTRY METHOD 08/15/2024 11:09 AM [facility] Creatinine 0.86 0.50 - 1.10 mg/dL LAB CHEMISTRY METHOD 08/15/2024 11:09 AM [facility] eGFR 93 >=60 mL/min/1. 73m2 LAB CHEMISTRY METHOD 08/15/2024 11:09 AM [facility] Comment:Calculation based on the??Chronic Kidney Disease Epidemiology Collaboration (CKD-EPI) equation refit??without adjustment for race. BUN/Creatinine Ratio 14.0 LAB CHEMISTRY METHOD 08/15/2024 11:09 AM [facility] Calcium 9.3 8.5 - 10.5 mg/dL LAB CHEMISTRY METHOD 08/15/2024 11:09 AM [facility] AST (SGOT) 24 10 - 42 unit/L LAB CHEMISTRY METHOD 08/15/2024 11:09 AM [facility] ALT (SGPT) 25 10 - 60 unit/L LAB CHEMISTRY METHOD 08/15/2024 11:09 AM [facility] Alkaline Phosphatase 115 42 - 121 unit/L LAB CHEMISTRY METHOD 08/15/2024 11:09 AM [facility] Total Protein 7.1 6.0 - 8.0 g/dL LAB CHEMISTRY METHOD 08/15/2024 11:09 AM [facility] Albumin 3.6 3.2 - 5.0 g/dL LAB CHEMISTRY METHOD 08/15/2024 11:09 AM [facility] Total Bilirubin 0.2 0.0 - 1.4 mg/dL LAB CHEMISTRY METHOD 08/15/2024 11:09 AM [facility] Blood Venous blood specimen / Unknown Venipuncture / Unknown 08/15/2024 10:22 AM EST 08/15/2024 10:36 AM EST Marcelo ASHLEY LAB BLOOD ORDERAB LES [facility] [address] [place] [address], * POC , urine manually resulted (08/15/2024 9:51 AM EST) Pathologist [facility] HCG, Ur POC Negative Negative POC hCG Int QC Pass? Yes Yes Urine Urine specimen obtained by clean catch procedure / Unknown 08/15/2024 9:51 AM EST Marcelo ASHLEY POINT OF CARE TORREY T ENTER/EDIT ORDERABLES * Urinalysis with reflex microscopic (08/15/2024 9:45 AM EST) Pathologist [facility] Specific [place] Urine 1.014 1.003 - 1.030 LAB URINALYSIS - AUTOMATED METHOD 08/15/2024 10:06 AM [facility] pH, Urine 6.5 5.0 - 8.0 pH LAB URINALYSIS - AUTOMATED METHOD 08/15/2024 10:06 AM [facility] Leukocytes, Urine Negative Negative LAB URINALYSIS - AUTOMATED METHOD 08/15/2024 10:06 AM [facility] Nitrite, Urine Negative Negative LAB URINALYSIS - AUTOMATED METHOD 08/15/2024 10:06 AM [facility] Protein, Urine Negative <=Trace mg/dL LAB URINALYSIS - AUTOMATED METHOD 08/15/2024 10:06 AM [facility] Glucose, Urine Negative Negative mg/dL LAB URINALYSIS - AUTOMATED METHOD 08/15/2024 10:06 AM [facility] Ketones, Urine Negative Negative mg/dL LAB URINALYSIS - AUTOMATED METHOD 08/15/2024 10:06 AM [facility] Urobilinogen, Urine 0.2 0.2 - 1.0 mg/dL LAB URINALYSIS - AUTOMATED METHOD 08/15/2024 10:06 AM [facility] Bilirubin, Urine Negative Negative LAB URINALYSIS - AUTOMATED METHOD 08/15/2024 10:06 AM [facility] Blood, Urine Negative Negative LAB URINALYSIS - AUTOMATED METHOD 08/15/2024 10:06 AM [facility] Urine Urine specimen obtained by clean catch procedure / Unknown Non-blood Collection / Unknown 08/15/2024 9:45 AM EST 08/15/2024 9:55 AM EST Marcel[facility] ASH[facility] LAB URINE ORDERAB LES [facility] [address] [place] [address], from Last 3 Months Care Teams Coat Examiner Relationship Specialty Start Date End Date Moustapha Ocasio MD [address] [place] [id number] PCP - General Internal Medicine 08/26/21
--- OUTSIDE RECORDS SUMMARY | 2024-08-20 10:17 | XMS_ITS | Encounter Summary ---
Author Organization [facility] Address [address] [place] [address] Care Team Providers Care Print Binding Worker Name Role Phone Moustapha Ocasio MD Primary Care Provider [phone] Reason for Visit * Reason Comments Abdominal Pain Encounter Details Date Type Department Care Team ([facility] st Contact Info) Description 08/15/2024 9:13 AM EST - 08/15/2024 12:54 PM EST Emergency [facility] Emergency [address] [place] [phone] Rick Rutherford MD [address] [address] Constipation, unspecified constipation type (Primary Dx); Generalized abdominal pain Discharge Disposition: Home or Self Care Social History Tobacco Use Types Packs/Day Years [...] file Not on file Not on file documented as of this encounter Last Filed Vital Signs Vital Sign Reading [...] Mass Index 23.91 08/15/2024 9:26 AM EST documented in this encounter Discharge Instructions * Discharge Instructions* GABI Bosch - 08/15/2024 12:28 PM EST You are seen in the emergency department today for ongoing abdominal pain Labs and CT scan are overall reassuring Some constipation seen on CT as we discussed Polyethylene glycol solution as prescribed I recommend you drink this until you begin to have regular bowel movements Get plenty of rest Stay well-hydrated Follow-up with primary care provider Follow-up with your SLIDE FORMING MACHINE OPERATOR provider as we discussed as well Return for new or worsening symptoms I hope you feel better Thank you for coming to the [facility] Emergency Department today. Our entire team works together to provide you with the best care possible. Examination and treatment you received in the emergency department has been rendered on an EMERGENCY basis only. It is not intended to be a substitute for, or an effort to provide, complete medical care. You should follow-up with your primary care provider. Please report to your physician any new or remaining problems, because it is impossible to recognize and treat all elements of injury or illness in a single emergency department visit. If you do not have a primary care provider or require a referral, a follow-up doctor promotional demonstrator for the emergency department will be provided in your discharge packet. In the event that you're unable to obtain a followup appointment in a timely fashion, OR you are not getting any better, OR you are getting worse, OR you develop any symptoms of concern, please return here immediately for further evaluation. The emergency department is open 24 hours a day, 7 days aweek. Your discharge report is based on information that was available when you were in the emergency department. The x-ray readings are preliminary and will be reviewed by a radiologist in the next 24 hours. If there is a discrepancy you will be notified by phone. If you do not have a primary care provider, please contact one of the following to make arrangements to follow up. [facility] Ilda Mendoza documented in this encounter Medications at Time of Discharge Medication Sig Dispensed Refills Start Date End Date albuterol HFA (PROAIR HFA ; PROVENTIL HFA ; VENTOLIN HFA) 90 mcg/actuation inhaler Inhale 2 puffs by mouth every 4 (four) hours if needed for shortness of breath. 02/01/2019 buPROPion XL (WELLBUTRIN XL) 150 mg 24 hr tablet Take 1 tablet (150 mg total) by mouth 1 (one) time each day. 06/30/2024 clonazePAM (KlonoPIN) 0.5 mg tablet Take 1 tablet (0.5 mg total) by mouth 2 (two) times a day if needed. for anxiety Max Daily Amount: 1 mg fluticasone propionate (FLONASE) 50 mcg/actuation nasal spray Administer 1 spray into each nostril 1 (one) time each day. norgestimate-ethinyl estradioL (ORTHO-CYCLEN) 0.25-35 mg-mcg per tablet Take 1 tablet by mouth 1 (one) time each day. polyethylene glycol (GoLYTELY) 236-22.74-6.74 -5.86 gram solution Take 4,000 mL by mouth 1 (one) time for 1 dose. 4000 mL 08/15/2024 08/15/2024 documented as of this encounter Ordered Prescriptions Prescription Sig Dispensed Refills Start Date End Da te polyethylene glycol (GoLYTELY) 236-22.74-6.74 -5.86 gram solution Take 4,000 mL by mouth 1 (one) time for 1 dose. 4000 mL 08/15/2024 08/15/2024 documented in this encounter Discharge Disposition Disposition Code Departure Means Destination Comment s Home or Self Care documented in this encounter Progress Notes * Artem Shah RN - 08/15/2024 9:20 AM EST Pt presents from work, reported right lower quadrant abdominal pain, onset x 2 weeks- intermittent per pt. Pain worsening this morning; reported abdominal distention with associated bloating and constipation. + Nausea. Denies urinary symptoms. Alert and oriented x 3 * GABI Bosch - 08/15/2024 9:09 AM EST Images from the original note were not included. [facility] Emergency Department Encounter Note Patient Name: Angela Antunez Initial Evaluation: 08/15/2024 : 1995 Patient's PCP: Moustapha Ocasio MD Emergency Provider: GABI Bosch Chief Complaint Patient presents with Abdominal Pain History of Present Illness HPI: Angela is a very pleasant 29-year-old female with a past medical history to include anxiety/depression among others presenting to the emergency department today for evaluation of lower abdominal pain. She reports over the last 2 weeks in particular she has had pain across the lower abdomen that somewhat nonfocal and radiate, including the back and across the lower abdomen. This was with some ongoing constipation. Intermittent nausea but no episodes of vomiting. She reports the last several days however its become more localized to the right lower quadrant of the abdomen. No urinary symptoms shecan identify, in particular no dysuria/urgency/frequency/hematuria. She has had a history of ovarian cyst but this feels somewhat different to her. There is no pelvic symptoms including vaginal discharge or dyspareunia. No fevers, some chills possibly. ROS: Review of Systems Constitutional: Negative for chills and fever. Respiratory: Negative for shortness of breath. Cardiovascular: Negative for chest pain. Gastrointestinal: Positive for abdominal distention, abdominal pain, constipation and nausea. Negative for anal bleeding, blood in stool, diarrhea, rectal pain and vomiting. Genitourinary: Negative for frequency and urgency. Musculoskeletal: Negative for gait problem. Skin: Negative for rash. Neurological: Negative for syncope, weakness and headaches. Psychiatric/Behavioral: Negative for suicidal ideas. All other systems reviewed and are negative. Remaining ROS are as documented in HPI. Previous History Past Medical History: Past Medical History: Diagnosis Date Anxiety Frequent headaches DX:Frequent headaches Ovarian cyst Past Surgical History: Past Surgical History: Procedure Laterality Date HAND SURGERY PROCEDURE:HAND SURGERY Medications: Patient's Medications New Prescriptions POLYETHYLENE GLYCOL (GOLYTELY) 236-22.74-6.74 -5.86 GRAM SOLUTION Take 4,000 mL by mouth 1 (one) time for 1 dose. Previous Medications ALBUTEROL HFA (PROAIR HFA ; PROVENTIL HFA ; VENTOLIN HFA) 90 MCG/ACTUATION INHALER Inhale 2 puffs by mouth every 4 (four) hours if needed for shortness of breath. BUPROPION XL (WELLBUTRIN XL) 150 MG 24 HR TABLET Take 1 tablet (150 mg total) by mouth 1 (one) timeeach day. CLONAZEPAM (KLONOPIN) 0.5 MG TABLET Take 1 tablet (0.5 mg total) by mouth 2 (two) times a day if needed. for anxiety Max Daily Amount: 1 mg FLUTICASONE PROPIONATE (FLONASE) 50 MCG/ACTUATION NASAL SPRAY Administer 1 spray into each nostril 1 (one) time each day. NORGESTIMATE-ETHINYL ESTRADIOL (ORTHO-CYCLEN) 0.25-35 MG-MCG PER TABLET Take 1 tablet by mouth 1 (one) time each day. Modified Medications No medications on file Discontinued Medications No medications on file Allergies: Patient has no known allergies. Social and Family History: Social History Tobacco Use Smoking status: Never Smokeless tobacco: Never Substance Use Topics Alcohol use: Yes Family History Problem Relation Name Age of Onset Lung cancer Mother Lung cancer Father Throat cancer Mother's Sister Lung cancer Father's Brother Lung cancer Maternal Grandmother Acute myelogenous leukemia Maternal Grandfather Lung cancer Paternal Grandmother Lung cancer Paternal Grandfather Physical Exam ED Triage Vitals Temp Heart Rate Resp BP 08/15/24 0926 08/15/24 0923 08/15/2492208/15/24922 36.8 ??C (98.3 ??F) 93 16 119/77 SpO2 Temp src Heart Rate Source Patient Position 08/15/24922 -- 08/15/2492208/15/24922 98 % Monitor Sitting BP Location FiO2 (%) 08/15/24922 -- Right arm Physical Exam Vitals reviewed. Constitutional: General: She is not in acute distress. Appearance: She is not toxic-appearing. HENT: Head: Normocephalic and atraumatic. Eyes: Extraocular Movements: Extraocular movements intact. Pupils: Pupils are equal, round, and reactive to light. Cardiovascular: Rate and Rhythm: Normal rate and regular rhythm. Heart sounds: No murmur heard. No friction rub. No gallop. Pulmonary: Effort: Pulmonary effort is normal. No respiratory distress. Breath sounds: Normal breath sounds. Abdominal: General: There is no distension. Palpations: Abdomen is soft. Tenderness: There is abdominal tenderness in the right lower quadrant. There is no right CVA tenderness, left CVA tenderness, guarding or rebound. Comments: Some mild tenderness noted to the right lower quadrant, otherwise abdomen overall soft, no peritoneal signs Musculoskeletal: General: Normal range of motion. Cervical back: Normal range of motion and neck supple. No rigidity. Skin: General: Skin is warm and dry. Findings: No rash. Neurological: Mental Status: She is alert and oriented to person, place, and time. ED Results: ED Labs: Labs Reviewed COMPREHENSIVE METABOLIC PANEL - Abnormal Result Value Sodium 137 Potassium 4.1 Chloride 109 CO2 26 Anion Gap 2 (*) Glucose 83 BUN 12 Creatinine 0.86 eGFR 93 BUN/Creatinine Ratio 14.0 Calcium 9.3 AST (SGOT) 24 ALT (SGPT) 25 Alkaline Phosphatase 115 Total Protein 7.1 Albumin 3.6 Total Bilirubin 0.2 CBC WITH AUTO DIFFERENTIAL - Abnormal WBC 6.7 RBC 4.50 Hemoglobin 13.7 Hematocrit 41.1 MCV 92.4 MCH 30.8 MCHC 33.3 RDW 12.0 Platelets 283 MPV 11.1 (*) NRBC 0.0 NRBC Absolute 0.00 Neutrophils Relative 56.3 Lymphocytes Relative 34.8 Monocytes Relative 6.4 Eosinophils Relative 1.5 Basophils Relative 0.7 Immature Granulocytes Relative 0.3 Neutrophils Absolute 3.77 Lymphocytes Absolute 2.33 Monocytes Absolute 0.43 Eosinophils Absolute 0.10 Basophils Absolute 0.05 Immature Granulocytes Absolute 0.02 LIPASE - Normal Lipase 48 URINALYSIS WITH REFLEX MICROSCOPIC - Normal Specific [place] Urine 1.014 pH, Urine 6.5 Leukocytes, Urine Negative Nitrite, Urine Negative Protein, Urine Negative Glucose, Urine Negative Ketones, Urine Negative Urobilinogen, Urine 0.2 Bilirubin, Urine Negative Blood, Urine Negative POC , URINE DIAGNOSTIC - Normal HCG, Ur POC Negative POC hCG Int QC Pass? Yes CBC AND DIFFERENTIAL Narrative: The following orders were created for panel order CBC and differential. Procedure Abnormality Status --------- ------ CBC auto differential[[id number]] Abnormal Final result Please view results for these tests on the individual orders. URINALYSIS WITH REFLEX MICROSCOPIC Narrative: The following orders were created for panel order Urinalysis with reflex microscopic - [id number]. Procedure Abnormality Status --------- ------ Urinalysis with reflex m...[[id number]] Normal Final result Please view results for these tests on the individual orders. ED Radiology: CT Abdomen Pelvis w Contrast Final Result No acute findings in the abdomen/pelvis. Normal appendix. -------- FINAL REPORT -------- Dictated By: DANIEL ALVARADO Dictated Date: 08/15/2024 12:03 ET Assigned Physician: DANIEL ALVARADO Reviewed and Electronically Signed By: DANIEL ALVARADO Signed Date: 08/15/2024 12:06 ET Workstation ID: [id number] Transcribed By: Self Edit Transcribed Date: 08/15/2024 12:03 ET The laboratory results, imaging results and other diagnostic exam results related to this ED encounter were reviewed in the EMR. ED Procedures: Procedures ED Administered Mediations: Medications ketorolac (TORADOL) injection 15 mg (15 mg intravenous Given 08/15/24 1145) sodium chloride 0.9 % flush 10 mL (10 mL intravenous Given 08/15/24 1135) iopamidoL (ISOVUE-370) 370 mg iodine /mL (76 %) injection 90 mL (90 mL intravenous Given 08/15/24 1135) ED Pre-Disposition Vitals: Vitals: 08/15/24 0926 BP: Pulse: Resp: Temp: 36.8 ??C (98.3 ??F) SpO2: Differential Diagnosis Appendicitis Constipation Fecal impaction Obstruction Colonic obstruction Ovarian torsion less likely Ovarian cyst Medical Decision Making, ED Course MDM: Medical Decision Making Angela is a pleasant 29-year-old female past medical history as listed above presenting to the emergency department today for evaluation of ongoing lower abdominal pain over the last 2 weeks. Will start with labs and urine analysis. Anticipate imaging at some point during the course. Offered analgesic and antiemetic, she politely declines on arrival. Vital signs within normal limits. Please see ED Course below for updates regarding ED results and course of the ED visit. ED Course: ED Course as of 08/15/24 1231 SunAug 15, 2024 1111 No significant leukocytosis or left shift. No evidence of anemia. Electrolytes renal function liver function studies are essentially unremarkable. UA is without evidence of infectious process. hCG is negative. Given location right lower quadrant abdominal pain, will obtain CT of the abdomen pelvis with contrast. [CC] 1217 CT without evidence of acute appendicitis is clinically questioned. Really fairly benign CT ingeneral, certainly some moderate stool throughout which may be leading to presentation today. We discussed pelvic etiology and offered pelvic ultrasound, and shared decision making, we will forego this at this time. Adamant there is no pelvic symptoms otherwise and defers pelvic exam. I have encouraged follow-up with SLIDE FORMING MACHINE OPERATOR. In the management of constipation, she is taken some [id number] remedies without any significant improvement. I recommend GoLytely as if it is a colonoscopy prep and to drink this until she is having some fairly regular bowel movements. Patient aware of plan and agre eable. [CC] ED Course User Index [CC] GABI Bosch Clinical Impressions as of 08/15/24 1231 Generalized abdominal pain Constipation, unspecified constipation type ED Prescriptions: ED Prescriptions Medication Sig Dispense Start Date End Date Auth. Provider polyethylene glycol (GoLYTELY) 236-22.74-6.74 -5.86 gram solution (Expires today) Take 4,000 mL by mouth 1 (one) time for 1 dose. 4,000 mL 08/15/2024 08/15/2024 GABI Bosch Disposition: Discharge Condition: Stable Diagnosis / Impression: Final diagnoses: [R10.84] Generalized abdominal pain [K59.00] Constipation, unspecified constipation type Provider Attestation Electronically signed by GABI Bosch-GABI Perez 08/15/24 9112 This is a split/shared visit with Rcik Rutherford MD. I personally performed the medical decision making (MDM) for the care of this patient on 08/15/24 as documented below Agree with assessment and plan, seen and examined by myself with nonspecific lower abdominal pain constipation versus diverticulitis versus appendicitis. History of ovarian cyst. GABI Bosch 08/15/24 12:31 PM EST GABI Bosch MD 08/15/24 1055 GABI Bosch 08/15/24 1231 GABI Bosch 08/15/24 1232 documented in this encounter Plan of Treatment Not on file documented as of this encounter Procedures Procedure Name Priority Date/Time Associated Diagnosis Comments CT ABDOMEN PELVIS W CONTRAST STAT 08/15/2024 11:39 AM EST CBC WITH AUTO DIFFERENTIAL STAT 08/15/2024 10:22 AM EST CBC AND DIFFERENTIAL STAT 08/15/2024 10:22 AM EST LIPASE STAT 08/15/2024 10:22 AM EST COMPREHENSIVE METABOLIC PANEL STAT 08/15/2024 10:22 AM EST POC , URINE DIAGNOSTIC STAT 08/15/2024 9:51 AM EST URINALYSIS WITH REFLEX MICROSCOPIC STAT 08/15/2024 9:45 AM EST URINALYSIS WITH REFLEX MICROSCOPIC STAT 08/15/2024 9:45 AM EST documented in this encounter Results * CT Abdomen Pelvis w Contrast [...] Signed Date: 08/15/2024 12:06 ET Workstation ID: [id number] Transcribed By: Self Edit Transcribed Date: 08/15/2024 [...] Signed Date: 08/15/2024 12:06 ET Workstation ID: [id number] Transcribed By: Self Edit Transcribed Date: 08/15/2024 12:03 ET Marcelo ASHLEY IMG CT PROCEDURES * (ABNORMAL) CBC auto differential (08/15/2024 10:22 AM EST) WBC 6.7 4.8 - 10.8 K/mcL LAB HEMETOLOGY METHOD 08/15/2024 10:46 AM [facility] RBC 4.50 3.80 - 4.80 M/mcL LAB HEMETOLOGY METHOD 08/15/2024 10:46 AM [facility] Hemoglobin 13.7 11.5 - 16.0 g/dL LAB HEMETOLOGY METHOD 08/15/2024 10:46 AM [facility] Hematocrit 41.1 35.0 - 47.0 % LAB HEMETOLOGY METHOD 08/15/2024 10:46 AM [facility] MCV 92.4 79.0 - 98.0 FL LAB HEMETOLOGY METHOD 08/15/2024 10:46 AM [facility] MCH 30.8 27.0 - 32.0 pcg LAB HEMETOLOGY METHOD 08/15/2024 10:46 AM [facility] MCHC 33.3 32.0 - 37.0 g/dL LAB HEMETOLOGY METHOD 08/15/2024 10:46 AM [facility] RDW 12.0 11.0 - 15.0 % LAB HEMETOLOGY METHOD 08/15/2024 10:46 AM [facility] Platelets 283 130 - 400 K/mcL LAB HEMETOLOGY METHOD 08/15/2024 10:46 AM [facility] MPV 11.1(H) 7.0 - 11.0 FL LAB HEMETOLOGY METHOD 08/15/2024 10:46 AM [facility] NRBC 0.0 <1.0 % LAB HEMETOLOGY METHOD 08/15/2024 10:46 AM [facility] NRBC Absolute 0.00 <0.10 K/mcL LAB HEMETOLOGY METHOD 08/15/2024 10:46 AM [facility] Neutrophils Relative 56.3 % LAB HEMETOLOGY METHOD 08/15/2024 10:46 AM [facility] Lymphocytes Relative 34.8 % LAB HEMETOLOGY METHOD 08/15/2024 10:46 AM [facility] Monocytes Relative 6.4 % LAB HEMETOLOGY METHOD 08/15/2024 10:46 AM [facility] Eosinophils Relative 1.5 % LAB HEMETOLOGY METHOD 08/15/2024 10:46 AM [facility] Basophils Relative 0.7 % LAB HEMETOLOGY METHOD 08/15/2024 10:46 AM [facility] Immature Granulocytes Relative 0.3 % LAB HEMETOLOGY METHOD 08/15/2024 10:46 AM [facility] Neutrophils Absolute 3.77 1.50 - 7.00 K/mcL LAB HEMETOLOGY METHOD 08/15/2024 10:46 AM [facility] Lymphocytes Absolute 2.33 1.00 - 5.00 K/mcL LAB HEMETOLOGY METHOD 08/15/2024 10:46 AM [facility] Monocytes Absolute 0.43 0.20 - 1.00 K/mcL LAB HEMETOLOGY METHOD 08/15/2024 10:46 AM [facility] Eosinophils Absolute 0.10 0.00 - 0.50 K/mcL LAB HEMETOLOGY METHOD 08/15/2024 10:46 AM [facility] Basophils Absolute 0.05 0.00 - 0.20 K/mcL LAB HEMETOLOGY METHOD 08/15/2024 10:46 AM [facility] Immature Granulocytes Absolute 0.02 0.00 - 0.03 K/[facility] LAB HEMETOLOGY METHOD 08/15/2024 10:46 AM [facility] Blood Venous blood specimen / Unknown Venipuncture / Unknown 08/15/2024 10:22 AM EST 08/15/2024 10:36 AM EST Marcelo ASHLEY LAB BLOOD ORDERAB LES Performing Organization Address City/[facility]/ZIP Co de Phone Number [facility] [address] [place] [address], [place] [phone] * Lipase (08/15/2024 10:22 AM EST) Pathologist [facility] Lipase 48 13 - 75 unit/L LAB CHEMISTRY METHOD 08/15/2024 11:08 AM [facility] Blood Venous blood specimen / Unknown Venipuncture / Unknown 08/15/2024 10:22 AM EST 08/15/2024 10:36 AM EST Marcelo ASHLEY LAB BLOOD ORDERAB LES Performing Organization Address City/[facility]/ZIP Co de Phone Number [facility] [address] [place] [address], [place] [phone] * (ABNORMAL) Comprehensive metabolic panel (08/15/2024 10:22 AM EST) Sodium 137 133 - 145 mmol/L LAB CHEMISTRY METHOD 08/15/2024 11:09 AM [facility] Potassium 4.1 3.5 - 5.5 mmol/L LAB CHEMISTRY METHOD 08/15/2024 11:09 AM [facility] Chloride 109 96 - 110 mmol/L LAB CHEMISTRY METHOD 08/15/2024 11:09 AM [facility] CO2 26 21 - 32 mmol/L LAB CHEMISTRY METHOD 08/15/2024 11:09 AM [facility] Anion Gap 2(L) 3 - 11 LAB CHEMISTRY METHOD 08/15/2024 11:09 AM [facility] Glucose 83 70 - 100 mg/dL LAB CHEMISTRY METHOD 08/15/2024 11:09 AM [facility] BUN 12 5 - 25 mg/dL LAB CHEMISTRY METHOD 08/15/2024 11:09 AM [facility] Creatinine 0.86 0.50 - 1.10 mg/dL LAB CHEMISTRY METHOD 08/15/2024 11:09 AM [facility] eGFR 93 >=60 mL/min/1. 73m2 LAB CHEMISTRY METHOD 08/15/2024 11:09 AM [facility] Comment:Calculation based on the??Chronic Kidney Disease Epidemiology Collaboration (CKD-EPI) equation refit??without adjustment for race. BUN/Creatinine Ratio 14.0 LAB CHEMISTRY METHOD 08/15/2024 11:09 AM [facility] Calcium 9.3 8.5 - 10.5 mg/dL LAB CHEMISTRY METHOD 08/15/2024 11:09 AM [facility] AST (SGOT) 24 10 - 42 unit/L LAB CHEMISTRY METHOD 08/15/2024 11:09 AM [facility] ALT (SGPT) 25 10 - 60 unit/L LAB CHEMISTRY METHOD 08/15/2024 11:09 AM [facility] Alkaline Phosphatase 115 42 - 121 unit/L LAB CHEMISTRY METHOD 08/15/2024 11:09 AM [facility] Total Protein 7.1 6.0 - 8.0 g/dL LAB CHEMISTRY METHOD 08/15/2024 11:09 AM [facility] Albumin 3.6 3.2 - 5.0 g/dL LAB CHEMISTRY METHOD 08/15/2024 11:09 AM [facility] Total Bilirubin 0.2 0.0 - 1.4 mg/dL LAB CHEMISTRY METHOD 08/15/2024 11:09 AM [facility] Blood Venous blood specimen / Unknown Venipuncture / Unknown 08/15/2024 10:22 AM EST 08/15/2024 10:36 AM EST Marcelo ASHLEY LAB BLOOD ORDERAB LES [facility] [address] [place] [address], * POC , urine manually resulted (08/15/2024 9:51 AM EST) HCG, Ur POC Negative Negative POC hCG Int QC Pass? Yes Yes Urine Urine specimen obtained by clean catch procedure / Unknown 08/15/2024 9:51 AM EST Marcelo ASHLEY POINT OF CARE TORREY T ENTER/EDIT ORDERABLES * Urinalysis with reflex microscopic (08/15/2024 9:45 AM EST) Specific [place] Urine 1.014 1.003 - 1.030 LAB URINALYSIS - AUTOMATED METHOD 08/15/2024 10:06 AM [facility] pH, Urine 6.5 5.0 - 8.0 pH LAB URINALYSIS - AUTOMATED METHOD 08/15/2024 10:06 AM [facility] Leukocytes, Urine Negative Negative LAB URINALYSIS - AUTOMATED METHOD 08/15/2024 10:06 AM [facility] Nitrite, Urine Negative Negative LAB URINALYSIS - AUTOMATED METHOD 08/15/2024 10:06 AM [facility] Protein, Urine Negative <=Trace mg/dL LAB URINALYSIS - AUTOMATED METHOD 08/15/2024 10:06 AM [facility] Glucose, Urine Negative Negative mg/dL LAB URINALYSIS - AUTOMATED METHOD 08/15/2024 10:06 AM [facility] Ketones, Urine Negative Negative mg/dL LAB URINALYSIS - AUTOMATED METHOD 08/15/2024 10:06 AM EST [facility] Urobilinogen, Urine 0.2 0.2 - 1.0 mg/dL LAB URINALYSIS - AUTOMATED METHOD 08/15/2024 10:06 AM EST [facility] Bilirubin, Urine Negative Negative LAB URINALYSIS - AUTOMATED METHOD 08/15/2024 10:06 AM EST [facility] Blood, Urine Negative Negative LAB URINALYSIS - AUTOMATED METHOD 08/15/2024 10:06 AM EST [facility] Urine Urine specimen obtained by clean catch procedure / Unknown Non-blood Collection / Unknown 08/15/2024 9:45 AM EST 08/15/2024 9:55 AM EST Marcelo ASHLEY LAB URINE ORDERAB LES [facility] Organization Address City/State/ZIP Co de Phone Number [facility] [address] [place] [address], documented in this encounter Visit Diagnoses Diagnosis Constipation, unspecified constipation type- Primary Generalized abdominal pain Abdominal pain, generalized documented in this encounter Administered Medications Inactive Administered Medications - up to 3 most recent administrations Medication Order MAR Action Action Date Dose Rate Site iopamidoL (ISOVUE-370) 370 mg iodine /mL (76 %) injection 90 mL 90 mL, intravenous, Once in imaging, Starting on Sun08/15/24 at 1135, For 1 dose Given 08/15/2024 11:35 AM EST 90 mL ketorolac (TORADOL) injection 15 mg 15 mg, intravenous, Once, On Sun08/15/24 at 1112, For 1 dose Given 08/15/2024 11:45 AM EST 15 mg sodium chloride 0.9 % flush 10 mL 10 mL, intravenous, Once, On Sun08/15/24 at 1136, For 1 dose Given 08/15/2024 11:35 AM EST 10 mL documented in this encounter Historical Medications * This list may reflect changes made after this encounter. Medication Sig Dispensed Refills Start Date End Date buPROPion XL (WELLBUTRIN XL) 150 mg 24 hr tablet Take 1 tablet (150 mg total) by mouth 1 (one) time each day. 06/30/2024 fluticasone propionate (FLONASE) 50 mcg/actuation nasal spray Administer 1 spray into each nostril 1 (one) time each day. norgestimate-ethinyl estradioL (ORTHO-CYCLEN) 0.25-35 mg-mcg per tablet Take 1 tablet by mouth 1 (one) time each day. clonazePAM (KlonoPIN) 0.5 mg tablet Take 1 tablet (0.5 mg total) by mouth 2 (two) times a day if needed. for anxiety Max Daily Amount: 1 mg albuterol HFA (PROAIR HFA ; PROVENTIL HFA ; VENTOLIN HFA) 90 mcg/actuation inhaler Inhale 2 puffs by mouth every 4 (four) hours if needed for shortness of breath. 02/01/2019 added in this encounter Active and Recently Administered Medications Times are shown in EST. Scheduled Medication Order 08/13/2024 08/14/2024 08/15/2024 iopamidoL (ISOVUE-370) 370 mg iodine /mL (76 %) injection 90 mL (COMPLETED) 90 mL, intravenous, Once in imaging, Starting on Sun08/15/24 at 1135, For 1 dose 1135 (Given - Provid er: Ana Cristina Nuñez) ketorolac (TORADOL) injection 15 mg (COMPLETED) 15 mg, intravenous, Once, On Sun08/15/24 at 1112, For 1 dose 1145 (Given - Provid er: Artem Shah RN) sodium chloride 0.9 % flush 10 mL (COMPLETED) 10 mL, intravenous, Once, On Sun08/15/24 at 1136, For 1 dose 1135 (Given - Provid er: Ana Cristina Nuñez) documented in this encounter Orders IV Count Last Ordered Date First Orde red Date INSERT PERIPHERAL IV 1 08/15/2024 documented in this encounter Care Teams Print Binding Worker Relationship Specialty Start Date End Date Moustapha Ocasio MD [address] [place] [address] PCP - General Internal Medicine 08/26/21 documented as of this encounter
--- OUTSIDE RECORDS SUMMARY | 2024-08-20 10:17 | XMS_ITS | Clinical Summary ---
Author Organization [facility] Address [address] [place] [address] Care Team Providers Care Line Assembler Name Role Phone Cooper Tam MD Primary Care Provider [phone] Allergies Active Allergy Reactions Criticality Noted Date Comments Latex 07/31/2023 Peanuts 07/31/2023 Medications Medication Sig Dispensed Refills Start Date End Date Status buPROPion (WELLBUTRIN XL) 300 MG 24 hr tablet 0 07/31/2023 Active clonazePAM (KlonoPIN) 0.5 MG tablet 0 07/30/2023 Active fluticasone (FLONASE) 50 MCG/ACT nasal spray spray/apply 1 spray in each nostril daily. 0 Active norgestimate-ethinyl estradiol (Sprintec 28) 0.25-35 MG-MCG per tablet Take 1 tablet by mouth daily. 0 Active Active Problems Problem Noted Date Diagnosed Date Chronic paroxysmal hemicrania, not intractable 0 07/31/2023 Family History Medical History Relation Name Comments Lung cancer Father Throat cancer Maternal Aunt Acute myelogenous leukemia Maternal Grandfather Lung cancer Maternal Grandmother Lung cancer Mother Lung cancer Paternal Grandfather Lung cancer Paternal Grandmother Lung cancer Paternal Uncle Relation Name Status Comments Father Maternal Aunt Alive Maternal Grandfather Maternal Grandmother Mother Paternal Grandfather Paternal Grandmother Paternal Uncle Social History Tobacco Use Types Packs/Day Years Used Date Smoking Tobacco: Never Smokeless Tobacco: Never Tobacco Cessation:Counseling Given: Not Answered Alcohol Use Standard Drinks/Week Comments Yes 0 (1 standard drink = 0.6 oz pur e alcohol) Socially Sex and Gender Information Value Date Recorded Sex Assigned at Female 08/07/2023 9:02 AM EST Gender Identity Not on file Sexual Orientation Not on file Job Start Date Occupation Industry Not on file Not on file Not on file Last Filed Vital Signs Vital Sign Reading Time Taken Comments Blood Pressure 108/74 08/07/2023 9:18 AM EST Pulse 88 08/07/2023 9:18 AM EST Temperature 36.2 ??C (97.2 ??F) 08/07/2023 9:18 AM ES T Respiratory Rate 18 07/14/2016 9:15 AM EST Oxygen Saturation 98% 08/07/2023 9:18 AM EST Inhaled Oxygen Concentration - - Weight 61.7 kg (136 lb) 08/07/2023 9:18 AM EST Height 160 cm (5' 3 ) 08/07/2023 9:18 AM EST Body Mass Index 24.09 08/07/2023 9:18 AM EST Plan of Treatment Health Maintenance Due Date Last Done Comments Hepatitis C Screening 1993 COVID-19 Vaccine (#1) 1993 DTap / Tdap / Td (6 - Tdap) 2004 08/0 07/1997, 12/21/1994, 1993, Additional history exists Depression Screening 2005 Preventative Health Evaluation 2011 Cervical Cancer Screening (Pap Smear) 2014 Influenza Vaccine (#1) 2024 Hepatitis B Vaccines Completed 02/20/1994, 1993, 1993 Pneumococcal Vaccine Aged Out No long er eligible based on patient's age to complete this topic RSV Ped < 20 months Aged Out No longe r eligible based on patient's age to complete this topic Advance Directives For more information, please contact: [phone] Latest Code Status on File Code Status Date Activated Date Inactivated Comments Full Code 07/14/2016 4:28 AM 07/14/2016 5:16 PM Thi s code status was ascertained in the following way: trauma. Care Teams Line Assembler Relationship Specialty Start Date End Date Cooper Tam MD PCP - General Internal Medicine 07/14/16
== END 2024-08-20 10:50 | disposition home or self-care (01) ==
PROVIDERS: PCP Internal Medicine; Visit Provider Nurse Practitioner Family
DX: K64.4 Residual hemorrhoidal skin tags (principal); K64.8 Other hemorrhoids; K58.9 Irritable bowel syndrome, unspecified; K59.01 Slow transit constipation
CPT/HCPCS: 99213